=== PATIENT | female | born 1985 | race Caucasian/White ===

== ENCOUNTER 2022-12-04 13:33 | Emergency (ER) | payer BC, SELFPAY ==
[2022-12-04 13:37] VITALS: BP 153/92; PULSE 77; RESP 16; TEMP 36.9; O2SAT 99; BMI 51.7
--- NOTE | 2022-12-04 13:57 | ED.NURSE ---
Pt came in with pain to her lower right back after helping someone off the ground at work. Says she has has previous back problems, but nothing this bad before. She cannot sit, stand, or walk without feeling intense pain. States when she lifts either legs up when sitting the pain radiates down to both legs.
--- NOTE | 2022-12-04 14:16 | ED.BACK ---
HPI - Back Pain/Injury General Chief Complaint: Back Injury/Pain Stated Complaint: Back Pain Time Seen by Provider: 12/04/22 13:41 History of Present Illness HPI Narrative: This 37-year-old female comes in with low back pain that is been severe over the past couple days. She states that she has had low back pain in the past that has resolved after a couple days but this was much worse. She does not report any particular injury event or strenuous activity. She states that she felt onset of pain that became severe after simply reaching forward with her hand to help somebody. There was no significant mechanism of injury or strenuous activity. She states pain is located to the right of midline in her low back and does not radiate into her legs. She reports that she cannot get comfortable whether sitting, standing, or lying down. She did take some [id number] medicines and also did go to urgent care a couple days ago. Here she received a Medrol Dosepak. She has taken Flexeril without much relief. Related Data Home Medications Medication Instructions Recorded Confirmed multivitamin 1 tab PO QAM 12/02/22 12/04/22 cyclobenzaprine 12/04/22 hydrocodone-acetaminophen 12/04/22 ibuprofen 12/04/22 Previous Rx's Medication Instructions Recorded methylprednisolone 4 mg tablets in See Rx Instructions PO PER PKG DIR 12/02/22 a dose pack (Medrol (Macho)) #21 ea gabapentin 100 mg capsule 100 mg PO TID #30 caps 12/04/22 hydrocodone 5 mg-acetaminophen 325 1 tab PO Q4-6H PRN pain #15 tabs 12/04/22 mg tablet ketorolac 10 mg tablet 10 mg PO Q8H 5 days #15 tabs 12/04/22 tizanidine 4 mg capsule (Zanaflex) 4 mg PO TID PRN muscle spasticity 12/04/22 #20 caps Allergies Allergy/AdvReac Type Severity Reaction Status Date / Time No Known Drug Allergies Allergy Verified 12/04/22 13:48 Review of Systems Status of ROS: Reports: 10 or more systems reviewed and unremarkable except as noted in History and below Narrative: Constitutional: No fevers, no weight gain or loss. Eyes: No discharge. No vision changes. HENT: No congestion, no sore throat, no ear pain. Cardiovascular: No chest pain, no palpitations. Respiratory: No shortness of breath, no wheezes, no cough. Gastrointestinal: No abdominal pain, no vomiting, no diarrhea. Genitourinary: No dysuria, no hematuria. Musculoskeletal: Low back pain. Skin: No rashes, no pruritis. Neurological: No dizziness, weakness, sensory change, speech change. Endo/Heme/Allergies: No bruising or bleeding. No polydipsia. Pysch: no suicidality, no anxiety, no insomnia. All other systems reviewed and are negative. [facility] Medical History (Updated 12/04/22 @ 14:21 by Loyd Lindo MD) Protrusion of lumbar intervertebral disc ?M51.26 - Other intervertebral disc displacement, lumbar region (ICD-10) Social History Smoking Status: Former smoker How often do you have a drink containing alcohol: 2-4 times a month AUDIT-C Alcohol total score: 2 Exam Narrative: Exam Narrative: Constitutional: Well-developed, well-nourished, no acute distress. HEENT: Normocephalic, atraumatic. Neck: Normal range of motion. Nontender. Supple. Heart: Regular. No murmurs. Normal rate. Intact distal pulses. Lungs: Clear to auscultation. No chest discomfort. No wheezes, rhonchi, or rales. Abdomen: Normal bowel sounds. Nontender. No rebound tenderness. Genitalia: Deferred. Back: No midline tenderness. In a sitting position I did passive straight leg raise of the left leg which very quickly brought out severe pain in her low back. I did not test the right leg Extremities: Normal range of motion. No injury. Skin: Intact. No rash. Warm. No erythema or pallor. Neurologic: No altered sensation. No weakness. Alert and oriented. Psychiatric: No suicidality. No anxiety or depression. No insomnia. Nursing notes and vitals signs are reviewed. Const: Vital Signs, click to edit/add: Vital Signs - 24 hr 12/04/22 13:37 Temperature 98.4 F Pulse Rate [Right Pulse Oximeter] 77 Respiratory Rate 16 Blood Pressure [Le ft Forearm] 153/92 H Pulse Oximetry 99 Oxygen Delivery Me thod Room Air Course Vital Signs Vital signs: Initial Vital Signs Temperature 98.4 F 12/04/22 13:37 Temperature Source Temporal Artery Scan 12/04/22 13:37 Pulse Rate 77 12/04/22 13:37 Respiratory Rate 16 12/04/22 13:37 Blood Pressure 153/92 H 12/04/22 13:37 Blood Pressure Mean 112 H 12/04/22 13:37 Blood Pressure Position Sitting 12/04/22 13:37 Pulse Oximetry 99 12/04/22 13:37 Oxygen Delivery Method Room Air 12/04/22 13:37 Vital Signs Temperature 98.4 F 12/04/22 13:37 Pulse Rate 77 12/04/22 13:37 Respiratory Rate 16 12/04/22 13:37 Blood Pressure 153/92 H 12/04/22 13:37 Pulse Oximetry 99 12/04/22 13:37 Oxygen Delivery Method Room Air 12/04/22 13:37 Temperature 98.4 F 12/04/22 13:37 Pulse Rate 77 12/04/22 13:37 Respiratory Rate 16 12/04/22 13:37 Blood Pressure 153/92 H 12/04/22 13:37 Pulse Oximetry 99 12/04/22 13:37 Oxygen Delivery Method Room Air 12/04/22 13:37 MDM - Back Pain/Injury MDM Narrative Medical decision making narrative: This patient comes in with low back pain as described above. She did not have any mechanism of injury that mandates imaging at this time. If not improve she may need MRI imaging. A passive straight leg raise test was positive of the opposite leg where she reports pain in her back. There is some suspicion of a lumbar radiculopathy. She states that she is already taking a Medrol Dosepak. She comes in with pain that is not adequately controlled. I explained that we do not use narcotics typically for this and there seems to be evidence that they do not work that well anyway. Nevertheless I did give her a intramuscular injection of morphine 10 mg. She also received an oral dose of dexamethasone 10 mg. Prescriptions are provided for Zanaflex, Gabapentin, Toradol, and a few tablets of [place]. I advised her to follow-up with the spine clinic. I also describe signs and symptoms that would indicate a true emergency requiring return to emergency room. Discharge Plan Discharge Clinical Impression: Lumbar radiculopathy Patient Disposition: Home w/ Parent or Adult Condition: Unchanged Additional Instructions: Take medications as needed and indicated. Arrange appointment with spine clinic by calling [phone]. Follow-up with primary physician or return if worsening. Prescriptions: New hydrocodone-acetaminophen 5-325 mg tablet 1 tab PO Q4-6H PRN (Reason: pain) Qty: 15 0RF ketorolac 10 mg tablet 10 mg PO Q8H 5 Days Qty: 15 0RF gabapentin 100 mg capsule 100 mg PO TID Qty: 30 2RF tizanidine [Zanaflex] 4 mg capsule 4 mg PO TID PRN (Reason: muscle spasticity) Qty: 20 0RF No Action multivitamin Tablet 1 tab PO QAM methylprednisolone [Medrol (Macho)] 4 mg tablets,dose pack See Rx Instructions PO PER PKG DIR Qty: 21 0RF Rx Instructions: PO PER PKG DIR hydrocodone-acetaminophen ibuprofen cyclobenzaprine Follow Up/Referrals: Lacy Ojeda MD [Primary Care Provider] - Stand [facility]
[2022-12-04] MEDS: MORPHINE 10 MG/ML inj IM (14:27)
[2022-12-04] MEDS: dexAMETHasone 10 MG/ML inj PO (14:28)
--- NOTE | 2022-12-04 14:34 | ED.NURSE ---
meds per MAR. Worried that she may get nauseated. Dr Lindo updated. humphrey MEDINA ordered.
[2022-12-04] MEDS: ONDANSETRON ODT 4 MG TAB PO (14:41)
== END 2022-12-04 15:31 | disposition home or self-care (01) ==
PROVIDERS: Emergency Provider Emergency Medicine Emergency Medical Services
DX: M54.16 Radiculopathy, lumbar region (principal)
CPT/HCPCS: 96372; 99283; 99284; A9270; J1100; J2270

== ENCOUNTER 2022-12-05 05:38 | Outpatient (CLI) | payer BC, SELFPAY | END 2022-12-05 05:39 | disposition home or self-care (01) | LOC: AMB 12-06 06:24 | PROVIDERS: Visit Provider Family Medicine | DX: M54.9 Dorsalgia, unspecified (principal) | CPT/HCPCS: A0425; A0427 ==

== ENCOUNTER 2022-12-05 06:31 | Emergency (ER) | payer BC, SELFPAY ==
[2022-12-05 06:38] VITALS: BP 158/76; PULSE 88; RESP 8; O2SAT 97
[2022-12-05 06:42] VITALS: BP 164/89; PULSE 89; RESP 18; TEMP 36.6; O2SAT 99; BMI 51.7
--- NOTE | 2022-12-05 07:08 | CRLHL7_ITS ---
For Patients: As a result of the Century Cures Act, medical imaging exams and procedure reports are released immediately into your electronic medical record. You may view this report before your referring provider. If you have questions, please contact your health care provider. INDICATION: Lumbar radiculopathy. Right leg/back pain. TECHNIQUE : Lumbar spine MRI without contrast. The following sequences were obtained: Sagittal T1, T2 weighted and STIR sequences. Axial T1 and T2 weighted sequences. COMPARISON: CT abdomen/pelvis from 01/22/2019. FINDINGS : Five lumbar type vertebral bodies, with the last fully formed disc space designated as L5-S1. Normal lumbar lordotic curve. No recent compression fracture or marrow replacing process. Lower cord/conus signal is normal. The conus terminates at a normal location. No intradural lesion. Small right renal cyst. Discs/Endplates: Mild disc height loss/disc dehydration at L3-4, L4-5 and L5-S1. Remaining discs are within normal limits. Findings at individual levels as follows: T11-12: No spinal canal or neural foraminal stenosis. T12-L1: No spinal canal or neural foraminal stenosis. L1-2: No spinal canal or neural foraminal stenosis. L2-3: No spinal canal or neural foraminal stenosis. L3-4: Very shallow central protrusion minimally flattens the thecal sac. No spinal canal or neural foraminal stenosis. L4-5: Minimal disc bulge. No spinal canal or neural foraminal stenosis. L5-S1: Minor left subarticular disc protrusion impinges the traversing left S1 nerve root. No spinal canal or neural foraminal stenosis. Imaged SI joints: Within normal limits. Imaged sacrum: Within normal limits. IMPRESSION: 1. At L5-S1, a left subarticular disc protrusion impinges the traversing left S1 nerve root. No spinal canal/neural foraminal stenosis or neural impingement elsewhere. No intradural pathology. Dictated by Kirk Clay MD @ 12/05/2022 12:53:29 PM (Electronically Signed)
--- NOTE | 2022-12-05 07:10 | ED.GENADULT ---
HPI - General Adult General Chief complaint: Back Injury/Pain <Itzel Walters MD - Last Filed: 12/12/22 23:59> Stated complaint: Severe back pain <Itzel Walters MD - Last Filed: 12/12/22 23:59> Time Seen by Provider: 12/05/22 06:41 <Itzel Walters MD - Last Filed: 12/12/22 23:59> Source: patient, family and EMS <Itzel Walters MD - Last Filed: 12/12/22 23:59> Mode of arrival: EMS <Itzel Walters MD - Last Filed: 12/12/22 23:59> History of Present Illness HPI narrative: 37-year-old female presents to the emergency department by EMS, significant other accompanying shortly after. Back pain for the last 4 days, started after she was helping lift of an adult disabled patient off of the ground. Had some mild immediate pain. Has a known history of a herniated disc, has never had pain yearly to this degree. Was evaluated in urgent care, started on a Medrol Dosepak. Was evaluated by the chiropractor the next day, symptoms have been getting steadily and progressively worse. Severe pain shooting down the right leg, pain at the right lower back area. She cannot point to the area completely due to severe pain but indicates the lower lumbar area 1 point in through the front. She was evaluated in the emergency department yesterday. Appropriate workup and notes reviewed. She was discharged home after Toradol, dexamethasone. She has been taking hydrocodone, the prescribed tizanidine and gabapentin. The medicines were helping overnight and she was able to sleep about 6 hours. When she awoke this morning, she was in so much pain that she could not move. She could not get out of bed. Her was unable to help get her out of bed so they called EMS. Pain is still located in the same area. No new symptoms. No loss of bowel or bladder control. She tried taking 2 hydrocodone, 1 Toradol tablet and 1 tizanidine with no significant improvement in her symptoms. EMS at my recommendation give 25 mcg of fentanyl which did help somewhat. She still reports severe pain. She has not had imaging in this episode. She feels like the pain is incredibly severe and she cannot function. Past medical history notable for obesity, denies any other long-term health problems. She notes no long-term prescription medications, no allergies. She is a nonsmoker. ROS is notable for the musculoskeletal and neurological symptoms as above. Denies any other generalized, respiratory, GI, urinary, musculoskeletal neurological or skin changes other than above. <Itzel Walters MD - Last Filed: 12/12/22 23:59> Related Data Home medications: Home Medications Medication Instructions Recorded Confirmed multivitamin 1 tab PO QAM 12/02/22 12/10/22 oxycodone 5 mg tablet 5 mg PO Q6H PRN 12/10/22 12/10/22 Previous Rx's Medication Instructions Recorded gabapentin 100 mg capsule 100 mg PO TID #30 caps 12/04/22 hydrocodone 5 mg-acetaminophen 325 1 tab PO Q4-6H PRN pain #15 tabs 12/04/22 mg tablet ketorolac 10 mg tablet 10 mg PO Q8H 5 days #15 tabs 12/04/22 tizanidine 4 mg capsule (Zanaflex) 4 mg PO TID PRN muscle spasticity 12/04/22 #20 caps <Itzel Walters MD - Last Filed: 12/12/22 23:59> Allergies/adverse reactions: Allergies Allergy/AdvReac Type Severity Reaction Status Date / Time No Known Drug Allergies Allergy Verified 12/10/22 15:04 <Itzel Walters MD - Last Filed: 12/12/22 23:59> [facility] Medical History: Medical History (Updated 12/05/22 @ 13:18 by Jovanny Sanders MD) Morbid obesity ?E66.01 - Morbid (severe) obesity due to excess calories (ICD-10) Depression ?F32.A - Depression, unspecified (ICD-10) Generalized anxiety disorder ?F41.1 - Generalized anxiety disorder (ICD-10) History of pre-eclampsia ?Z87.59 - Personal history of other complications of , childbirth and the puerperium (ICD-10) Miscarriage ?O03.9 - Complete or unspecified spontaneous without complication (ICD-10) Syncope ?R55 - Syncope and collapse (ICD-10) Hemorrhoid ?K64.9 - Unspecified hemorrhoids (ICD-10) Protrusion of lumbar intervertebral disc ?M51.26 - Other intervertebral disc displacement, lumbar region (ICD-10) <Itzel Walters MD - Last Filed: 12/12/22 23:59> Surgical History: Surgical History (Updated 12/05/22 @ 06:59 by Cuco Jorgensen RN) History of section ?Z98.891 - History of uterine scar from previous surgery (ICD-10) <Itzel Walters MD - Last Filed: 12/12/22 23:59> Social History: Social History Smoking Status: Former smoker How often do you have a drink containing alcohol: 2-4 times a month AUDIT-C Alcohol total score: 2 Non-prescribed substance use: denies use <Itzel Walters MD - Last Filed: 12/12/22 23:59> Exam Const: Vital Signs, click to edit/add: Vital Signs - 24 hr 12/05/22 06:42 12/05/22 09:57 12/05/22 11:00 Temperature 97.8 F Pulse Rate [Right Pulse Oximeter] 89 70 65 Respiratory Rate 18 18 18 Blood Pressure [Ri ght Upper Arm] 164/89 H Pulse Oximetry 99 98 98 Oxygen Delivery Me thod Room Air Room Air Room Air <Itzel Walters MD - Last Filed: 12/12/22 23:59> Vital Signs, click to edit/add: Vital Signs - 24 hr 12/05/22 06:42 12/05/22 09:57 12/05/22 11:00 Temperature 97.8 F Pulse Rate [Right Pulse Oximeter] 89 70 65 Respiratory Rate 18 18 18 Blood Pressure [Ri ght Upper Arm] 164/89 H Pulse Oximetry 99 98 98 Oxygen Delivery Me thod Room Air Room Air Room Air <Jovanny Sanders MD - Last Filed: 12/05/22 13:19> Documenting provider has reviewed patient's vital signs: yes <Itzel Walters MD - Last Filed: 12/12/22 23:59> Other: Polite but obvious only in significant pain. Appears well nourished and well hydrated. <Itzel Walters MD - Last Filed: 12/12/22 23:59> HENMT: Common normals: normocephalic <Itzel Walters MD - Last Filed: 12/12/22 23:59> Head and scalp: normocephalic <MD Sandeep Lam Last Filed: 12/12/22 23:59> Face and sinus: normal facial exam <MD Sandeep Lam Last Filed: 12/12/22 23:59> Mouth: oral and palatal mucosa normal <MD Sandeep Lam Last Filed: 12/12/22 23:59> Throat: posterior oropharynx normal <MD Sandeep Lam Last Filed: 12/12/22 23:59> Eye: Common normals: conjunctivae normal <MD Sandeep Lam Last Filed: 12/12/22 23:59> General eye: normal appearance of both eyes <MD Sandeep Lam Last Filed: 12/12/22 23:59> Conjunctiva: conjunctiva(e) normal <MD Sandeep Lam Last Filed: 12/12/22 23:59> Neck & C-Spine: Common normals: full ROM and no lymphadenopathy <MD Sandeep Lam Last Filed: 12/12/22 23:59> Resp: Common normals: normal respiratory effort, no use of accessory muscles and clear to auscultation bilaterally <MD Sandeep Lam Last Filed: 12/12/22 23:59> Auscultation: clear to auscultation bilaterally <MD Sandeep Lam Last Filed: 12/12/22 23:59> Other: Only able to auscultate anteriorly and laterally due to inability to move patient. <MD Sandeep Lam Last Filed: 12/12/22 23:59> Cardio: Common normals: regular rate, S1 normal heart sound, S2 normal heart sound and no murmurs <MD Sandeep Lam Last Filed: 12/12/22 23:59> Rate: regular rate <MD Sandeep Lam Last Filed: 12/12/22 23:59> Heart sounds: S1 normal and S2 normal <Itzel Walters MD - Last Filed: 12/12/22 23:59> GI: Common normals: Normal to inspection, nondistended, normoactive bowel sounds present <Itzel Walters MD - Last Filed: 12/12/22 23:59> Back & Pelvis: Other: Patient is in too much pain to participate in proper back exam. She cannot sit up, cannot rule to the side to assess point bony tenderness. She is unable to perform a straight leg lift on either side properly. She cannot lift above about 10?. She can flex and engage both the flexors and extensors adequately in a neutral position. Sensation normal. Can flex and extend the feet and ankles with no difficulty. Normal pedal pulses bilaterally, extremities warm to the touch. <Itzel Walters MD - Last Filed: 12/12/22 23:59> Extremity: Common normals: no pedal edema <Itzel Walters MD - Last Filed: 12/12/22 23:59> Psych: Attitude: engaged <Itzel Walters MD - Last Filed: 12/12/22 23:59> Activity/motor behavior: appropriate eye contact <Itzel Walters MD - Last Filed: 12/12/22 23:59> Mood and affect: euthymic mood <Itzel Walters MD - Last Filed: 12/12/22 23:59> Skin: Common normals: no rashes or lesions noted <Itzel Walters MD - Last Filed: 12/12/22 23:59> Narrative: Cannot examine back. <Itzel Walters MD - Last Filed: 12/12/22 23:59> General skin exam: no rashes or lesions noted <Itzel Walters MD - Last Filed: 12/12/22 23:59> Course Course Hospital Course: Suspect herniated disc with lumbar radiculopathy. Has failed outpatient management on 2 attempts. Four days on steroids with worsening of symptoms, failure to improve with medications prescribed yesterday. I have recommended an MRI. Will give another 10 mg of dexamethasone, 300 of gabapentin, 10 of oxycodone and 30 of IM Toradol. Await MRI. Will hand off to my day shift partner. <Itzel Walters MD - Last Filed: 12/12/22 23:59> Vital Signs Vital signs: Initial Vital Signs Pulse Rate 88 12/05/22 06:38 Respiratory Rate 8 L 12/05/22 06:38 Blood Pressure 158/76 H 12/05/22 06:38 Blood Pressure Mean 103 12/05/22 06:38 Blood Pressure Position Sitting 12/05/22 06:38 Pulse Oximetry 97 12/05/22 06:38 Oxygen Delivery Method Room Air 12/05/22 06:38 Vital Signs Pulse Rate 88 12/05/22 06:38 Respiratory Rate 8 L 12/05/22 06:38 Blood Pressure 158/76 H 12/05/22 06:38 Pulse Oximetry 97 12/05/22 06:38 Oxygen Delivery Method Room Air 12/05/22 06:38 Temperature 97.8 F 12/05/22 06:42 Pulse Rate 65 12/05/22 11:00 Respiratory Rate 18 12/05/22 11:00 Blood Pressure 164/89 H 12/05/22 06:42 Pulse Oximetry 98 12/05/22 11:00 Oxygen Delivery Method Room Air 12/05/22 11:00 <Itzel Walters MD - Last Filed: 12/12/22 23:59> Initial Vital Signs Pulse Rate 88 12/05/22 06:38 Respiratory Rate 8 L 12/05/22 06:38 Blood Pressure 158/76 H 12/05/22 06:38 Blood Pressure Mean 103 12/05/22 06:38 Blood Pressure Position Sitting 12/05/22 06:38 Pulse Oximetry 97 12/05/22 06:38 Oxygen Delivery Method Room Air 12/05/22 06:38 Vital Signs Pulse Rate 88 12/05/22 06:38 Respiratory Rate 8 L 12/05/22 06:38 Blood Pressure 158/76 H 12/05/22 06:38 Pulse Oximetry 97 12/05/22 06:38 Oxygen Delivery Method Room Air 12/05/22 06:38 Temperature 97.8 F 12/05/22 06:42 Pulse Rate 65 12/05/22 11:00 Respiratory Rate 18 12/05/22 11:00 Blood Pressure 164/89 H 12/05/22 06:42 Pulse Oximetry 98 12/05/22 11:00 Oxygen Delivery Method Room Air 12/05/22 11:00 <Jovanny Sanders MD - Last Filed: 12/05/22 13:19> Medical Decision Making MDM Narrative Medical decision making narrative: Patient is a 37-year-old woman who came in overnight with severe low back pain with radiculopathy. We did follow the previous physicians treatment recommendations and did add 0.5 mg of IV Dilaudid which seemed to help significantly. MRI done showed L5-S1 disc herniation with S1 nerve impingement. Patient is now feeling much better but still very tender and having mild pain. Patient has significant amount pain meds at home including tizanidine steroid pack which he is in the middle of. She also has hydrocodone and oral Toradol. At this time I did give her my card and we will arrange for her to see the doc in injection clinic. She was given oxycodone to take in the interim at home. She will return if symptoms worsen. Patient is able to ambulate with assistance is here with her . <Jovanny Sanders MD - Last Filed: 12/05/22 13:19> Differential Diagnosis Differential Diagnosis: Nerve impingement spinal abscess new disc herniation facet disease <Jovanny Sanders MD - Last Filed: 12/05/22 13:19> Medical Records Medical records reviewed: Yes I reviewed the patient's medical records <Jovanny Sanders MD - Last Filed: 12/05/22 13:19> Discharge Plan Discharge Clinical Impression: Lumbar radiculopathy <Itzel Walters MD - Last Filed: 12/12/22 23:59> Patient Disposition: Home, Self-Care <Itzel Walters MD - Last Filed: 12/12/22 23:59> Condition: Stable <Itzel Walters MD - Last Filed: 12/12/22 23:59> Instructions: Back Pain (ED) <Itzel Walters MD - Last Filed: 12/12/22 23:59> Additional Instructions: Substituted oxycodone for hydrocodone Continue the remainder of your outpatient regiment Call Dr. Sanders's office tomorrow to schedule an injection in back clinic Follow-up as needed <Itzel Walters MD - Last Filed: 12/12/22 23:59> Activity Level: No Restrictions <Itzel Walters MD - Last Filed: 12/12/22 23:59> No Restrictions <Jovanny Sanders MD - Last Filed: 12/05/22 13:19> Discharge Diet: Regular <Itzel Walters MD - Last Filed: 12/12/22 23:59> Regular <Jovanny Sanders MD - Last Filed: 12/05/22 13:19> Prescriptions: No Action multivitamin Tablet 1 tab PO QAM oxycodone 5 mg tablet 5 mg PO Q6H PRN hydrocodone-acetaminophen 5-325 mg tablet 1 tab PO Q4-6H PRN (Reason: pain) Qty: 15 0RF ketorolac 10 mg tablet 10 mg PO Q8H 5 Days Qty: 15 0RF gabapentin 100 mg capsule 100 mg PO TID Qty: 30 2RF tizanidine [Zanaflex] 4 mg capsule 4 mg PO TID PRN (Reason: muscle spasticity) Qty: 20 0RF <Itzel Walters MD - Last Filed: 12/12/22 23:59> Follow Up/Referrals: Provider,Not a Local [Primary Care Provider] - <Itzel Walters MD - Last Filed: 12/12/22 23:59> Stand Alone Forms: [facility] Info Instructions <Itzel Walters MD - Last Filed: 12/12/22 23:59>
[2022-12-05] MEDS: OXYCODONE 5 MG TABLET 10 MG PO (07:26)
[2022-12-05] MEDS: KETOROLAC 30 MG/ML inj IM (07:26)
[2022-12-05] MEDS: dexAMETHasone 4 MG TABLET 10 MG PO (07:35)
[2022-12-05] MEDS: GABAPENTIN 300 MG CAPSULE PO (07:36)
--- NOTE | 2022-12-05 07:48 | ED.NURSE ---
up to bathroom with walker
[2022-12-05] MEDS: HYDROmorphone 0.5 mg/0.5 ml inj IVP (09:21)
[2022-12-05 09:57] VITALS: PULSE 70; RESP 18; O2SAT 98
[2022-12-05 11:00] VITALS: PULSE 65; RESP 18; O2SAT 98
== END 2022-12-05 13:48 | disposition home or self-care (01) ==
PROVIDERS: Emergency Provider Family Medicine
DX: M54.16 Radiculopathy, lumbar region (principal)
CPT/HCPCS: 72148; 96372; 96374; 99283; 99284; A9270; J1170; J1885

== ENCOUNTER 2023-01-07 10:06 | Outpatient (CLI) | payer BC, SELFPAY | END 2023-01-07 10:07 | disposition home or self-care (01) | LOC: INJ CL 10:08 | PROVIDERS: Visit Provider Family Medicine | DX: M54.16 Radiculopathy, lumbar region (principal); M51.26 Other intervertebral disc displacement, lumbar region | CPT/HCPCS: 62323; J0702; Q9966 ==

== ENCOUNTER 2023-02-13 09:15 | Outpatient (RCR) | payer BC, SELFPAY | END 2023-05-16 15:56 | disposition home or self-care (01) | PROVIDERS: Visit Provider Family Medicine | DX: M54.50 Low back pain, unspecified (principal); M51.16 Intervertebral disc disorders with radiculopathy, lumbar region; M79.605 Pain in left leg; M62.81 Muscle weakness (generalized); Z74.09 Other reduced mobility; Z51.89 Encounter for other specified aftercare | CPT/HCPCS: 97110; 97140; 97161 ==

== ENCOUNTER 2024-07-29 14:47 | Outpatient (CLI) | payer BC, SELFPAY | END 2024-07-29 14:48 | disposition home or self-care (01) | PROVIDERS: Visit Provider Internal Medicine | DX: E66.9 Obesity, unspecified (principal) | CPT/HCPCS: 80053; 84443 ==